=== PATIENT | male | born 1955 | race Caucasian/White ===

== ENCOUNTER → 2017-09-23 | Outpatient (CLI) | payer BC, OTHER | END | disposition home or self-care (01) | LOC: PCVCIMAG 12:52 | DX: I65.23 Occlusion and stenosis of bilateral carotid arteries (principal); E78.5 Hyperlipidemia, unspecified; I10 Essential (primary) hypertension; Z95.1 Presence of aortocoronary bypass graft | CPT/HCPCS: 80061; 93005; 93880 ==

== ENCOUNTER → 2018-12-20 | Outpatient (CLI) | payer BC ==
--- NOTE | 2018-12-20 17:12 | PCVCIMAG ---
APPROVED REPORT Study performed: 12/20/2018 13:33:26 Exam: Stress Echocardiogram Indication: CAD s/p CABG, AVR Patient Location: Echo lab Stress Nurse: Ashley Bull RN Status: routine Ht: 6 ft 0 in HR: 78 bpm BP: 142/80 mmHg Rhythm: RBBB Medical History Medical History: CAD s/p CABG, Bioprothesis Aortic valve Procedure The patient underwent an Exercise Stress Test using the [employer]ionic[employer] Protocol. Blood pressure, heart rate, and EKG were monitored. An Echocardiogram was performed by dialysis biomed technician in four stages in quad fashion. At peak stress, four selected images were obtained and placed side by side with resting images for comparison. Stress Test Details Stress Test: Exercise stress testing was performed using a [employer] protocol. HR Resting HR: 78 bpmMax Heart Rate (APMHR): 157 bpm Max HR Achieved: 164 bpmTarget HR (85% APMHR): 133 bpm % of APMHR: 104 Recovery HR: 107 bpm HR response to stress: Normal HR response to stress BP Resting BP: 142/80 mmHg Max BP: 188/100 mmHg Recovery BP: 180/88 mmHg BP response to stress: Normal blood pressure response to stress. ECG Resting ECG: Sinus Rhythm, RBBB Stress ECG: Sinus Rhythm, , RBBB Recovery ECG: Sinus Rhythm, RBBB Clinical Reason for Termination: Maximal effort Exercise duration: 10 min 17 sec Highest Stage Achieved: Stage 3: 3.4 mph at 14% grade. Exercise capacity: 13.70 METs Overall Exercise Capacity for Age: Normal Pre-Stress Echo The resting Echocardiogram showed abnormal left ventricular contractility with an estimated Ejection Fraction of about 50%. Post-Stress Echo The stress Echocardiogram showed abnormal left ventricular contractility with an estimated Ejection Fraction of about 50%. Conclusion Clinical Response: Non-ischemic Exercise Capacity: Average Stress ECG Response: Non-ischemic Stress Echo Images: Non-ischemic Aortic valve peak gradient is 47mmhg. Mean gradient is 30mmhg. Aortic valve area is 1.2. <Conclusion> Aortic valve peak gradient is 47mmhg. Mean gradient is 30mmhg. Aortic valve area is 1.2.
== END | disposition home or self-care (01) ==
LOC: PCVCIMAG 13:18
PROVIDERS: ATTEND Internal Medicine Cardiovascular Disease
DX: I25.10 Atherosclerotic heart disease of native coronary artery without angina pectoris (principal); I10 Essential (primary) hypertension; E78.5 Hyperlipidemia, unspecified; I35.9 Nonrheumatic aortic valve disorder, unspecified; R55 Syncope and collapse; E78.00 Pure hypercholesterolemia, unspecified; I77.9 Disorder of arteries and arterioles, unspecified; Z95.3 Presence of xenogenic heart valve; Z95.1 Presence of aortocoronary bypass graft
CPT/HCPCS: 93325; 93351